=== PATIENT | male | born 1960 | race Caucasian/White ===

== ENCOUNTER 2016-12-08 18:42 | Emergency (ER) | payer OTHER ==
[~2016-12-08] VITALS: Ht 188 cm; Wt 107.0 kg
[~2016-12-08 18:42] MED LIST: AMLO5TAB4 PO; CLON-379 PO; DICY10CA60 PO; HYDR-762 PO; Metoprolol Succinate PO; ONDA4TAB35 PO; SENN-53 PO
[2016-12-08 18:46] VITALS: Ht 188 cm; Wt 107.0 kg
[2016-12-08] MEDS ORDERED: TIMOLOL 0.5% 5 ML OPH LEFT EYE ONE (21:00)
[2016-12-08] MEDS ORDERED: TETRACAINE 0.5% 4 ML OPH LEFT EYE ONE (21:00)
[2016-12-08] MEDS ORDERED: ACETAZOLAMIDE 500 MG INJ IV ONE (21:00)
[2016-12-08] MEDS ORDERED: FLUORESCEIN STRIP LEFT EYE ONE (21:00)
--- NOTE | 2016-12-08 21:17 | ERD ---
ER Documentation Chief Complaint Chief Complaint left eye pain/swelling since this am upon waking up HPI 56-year-old male presenting with the chief complaints of left eye pain 12 hours. Describes the eye pain as ripping and sharp. Sudden onset. Patient describes decrease in vision without specific characteristics. Complains of photophobia., Denies headache, similar symptoms in past, difficulty breathing, fever, chills, nausea, vomiting, or discharge. Has not taken any medications to relieve the symptoms. No alleviating factors. Patient has no other complaints and describes no other associated manifestations. Nursing notes have been reviewed and are consistent with history given. ROS All systems reviewed and are negative except as per history of present illness. Medications Home Meds Active Scripts Sennosides* (Senna Lax*) 8.6 Mg Tablet, 1 TAB PO Q12H Y for CONSTIPATION, #20 TAB Prov:ANA HUTCHISON 06/02/15 Clonidine Hcl* (Clonidine Hcl*) 0.1 Mg Tab, 0.1 MG PO Q4H Y for sbp>160, #30 TAB Prov:ANA HUTCHISON 06/02/15 [Metoprolol Succinate] 25 MG TABSR No Conflict Check, 25 MG PO BID for 30 Days, TAB Prov:ANA HUTCHISON 06/02/15 Amlodipine Besylate* (Norvasc*) 5 Mg Tab, 5 MG PO BID for 30 Days, TAB Prov:ANA HUTCHISON 06/02/15 Ondansetron Hcl* (Zofran* ODT) 4 mg -ODT Tab.disper, 4 MG PO Q6 Y for NAUSEA AND /OR VOMITING, #30 TAB Prov:ANA HUTCHISON 06/02/15 Dicyclomine Hcl* (Bentyl*) 10 Mg Capsule, 10 MG PO QID Y for abdominal pain, # 30 CAP Prov:KIMANI PÉREZ MD 05/31/15 Hydrocodone Bit-Acetaminophen* ([place]*) 10-325 Mg Tablet, 1 TAB PO Q6 Y for PAIN , #12 TAB Prov:KIMANI PÉREZ MD 05/31/15 Allergies Allergies: Coded Allergies: No Known Drug Allergies (Verified Allergy, Unknown, 12/08/16) Uncoded Allergies: SEAFOOD (Allergy, Intermediate, ITCHING, 06/01/15) PMhx/Soc History of Surgery: Yes (2/1/16 KELOID REMOVED FROM RIGHT CHEST) Anesthesia Reaction: No Hx Neurological Disorder: No Hx Respiratory Disorders: No Hx Cardiac Disorders: No Hx Psychiatric Problems: No Hx Miscellaneous Medical Probl: No Hx Alcohol Use: Yes (RARELY) Hx Substance Use: No Hx Tobacco Use: No Physical Exam Vitals Vital Signs Date Time Temp Pulse Resp B/P Pulse Ox O2 Delivery O2 Flow Rate FiO2 12/09/16 00:05 98.1 71 18 157/78 98 Room Air 12/08/16 18:46 98.1 89 20 157/77 98 Physical Exam Const: Overweight -[place] 56-year-old male in moderate distress. Head: Atraumatic Eyes: Scleral and ciliary injection. Mild clear discharge from left eye. Extraocular movements intact bilaterally. No nystagmus. Poorly dilating left pupil. ENT: Normal External Ears, Nose and Mouth. Neck: Full range of motion..~ No meningismus. Resp: Clear to auscultation bilaterally Cardio: Regular rate and rhythm, no murmurs Abd: Soft, non tender, non distended. Normal bowel sounds Skin: No petechiae or rashes Back: No midline or flank tenderness Ext: No cyanosis, or edema Neur: Awake and alert Psych: Normal Mood and Affect Result Diagram: 12/08/16214412/08/162144 Results 24 hrs Laboratory Tests Test 12/08/16 21:45 White Blood Count 4.910^3/ul Red Blood Count 4.3410^6/ul Hemoglobin 12.3g/dl Hematocrit 36.1% Mean Corpuscular Volume 83.2fl Mean Corpuscular Hemoglobin 28.3pg Mean Corpuscular Hemoglobin Concent 34.1g/dl Red Cell Distribution Width 11.9% Platelet Count 38273^3/UL Mean Platelet Volume 9.9fl Neutrophils % 67.9% Lymphocytes % 23.5% Monocytes % 6.8% Eosinophils % 1.0% Basophils % 0.4% Nucleated Red Blood Cells % 0.0/100WBC Neutrophils # 3.310^3/ul Lymphocytes # 1.110^3/ul Monocytes # 0.310^3/ul Eosinophils # 0.110^3/ul Basophils # 0.010^3/ul Nucleated Red Blood Cells # 0.010^3/ul Prothrombin Time 13.7Sec Prothrombin Time Ratio 1.1 INR International Normalized Ratio 1.05 Activated Partial Thromboplast Time 25.3Sec Sodium Level 140mmol/L Potassium Level 3.3mmol/L Chloride Level 104mmol/L Carbon Dioxide Level 24mmol/L Anion Gap 15 Blood Urea Nitrogen 6mg/dl Creatinine 1.05mg/dl Glucose Level 90mg/dl Calcium Level 9.0mg/dl Total Bilirubin 0.9mg/dl Direct Bilirubin 0.00mg/dl Indirect Bilirubin 0.9mg/dl Aspartate Amino Transf (AST/SGOT) 44IU/L Alanine Aminotransferase (ALT/SGPT) 44IU/L Alkaline Phosphatase 71IU/L Total Protein 7.6g/dl Albumin 4.1g/dl Globulin 3.50g/dl Albumin/Globulin Ratio 1.17 Current Medications Medications (Trade) Dose Ordered Sig/Lainey Route PRN Reason Start Time Stop Time Status Last Admin Dose Admin Tetracaine HCl (Tetracaine 0.5% Steri-Unit Agata) 1 drop ONCE ONCE LEFT EYE 12/08/16 21:00 12/08/16 21:01 DC 12/08/16 21:32 Fluorescein Sodium (Cewjn-L-Qfhcp) 1 strip ONCE ONCE LEFT EYE 12/08/16 21:00 12/08/16 21:01 DC 12/08/16 21:32 Acetazolamide (Diamox) 250 mg ONCE ONCE IV 12/08/16 21:00 12/08/16 21:01 DC 12/08/16 21:08 Timolol Maleate (Timoptic 0.5%) 1 drop ONCE ONCE LEFT EYE 12/08/16 21:00 12/08/16 21:01 DC 12/08/16 21:33 Brimonidine Tartrate (Alphagan P 0.15%) 1 drop ONCE ONCE LEFT EYE 12/08/16 22:00 12/08/16 22:01 DC 12/08/16 22:18 Prednisolone Acetate (Pred-Forte 1%) 1 drop ONCE ONCE LEFT EYE 12/08/16 22:00 12/08/16 22:01 DC 12/08/16 22:12 Ciprofloxacin HCl (Ciloxan 0.3% Oph) 2 drop ONCE ONCE BOTH EYES 12/08/16 23:30 12/08/16 23:31 DC 12/08/16 23:30 Morphine Sulfate (morphine) 5 mg ONCE ONCE IV 12/08/16 23:30 12/08/16 23:31 DC 12/08/16 23:42 Acetazolamide (Diamox) 250 mg ONCE ONCE IV 12/09/16 01:00 12/09/16 01:01 DC 12/09/16 01:02 Procedures/MDM Otherwise healthy 56-year-old male presenting with 12 hours of acute, red, painful eye with photophobia and decreased vision as described in history and physical examination. Eye was numbed with proparacaine in each eye. The unaffected right eye measured 32, the affected left eye measured 58 on 2 separate readings. I presented the case immediately to my attending Dr. Humphreys who has suggested IV acetazolamide 250, topical timolol, then topical prednisolone, and topical brimonidine 1.5%. Fluorescein stain with Reynolds lamp revealed no abnormalities. Clear discharge noted during Reynolds lamp. Reevaluation with Ariel- Pen revealed decrease pressure to 37 at the 1 hour martir. Reevaluation with Ariel -Pen at 1-1/2 hours measured at 31 on the affected eye. CT scan is not available at the hospital at this time.Case was presented again to my attending Dr. Humphreys who has recommended flushing the eye with Roland lens, Ciprodex gtt antibiotics. I have spoke with the patient who will stay for transfer to another facility with ophthalmology. I have explained the options and the time sensitivity of the situation. Unable to find a transfer location at this time. Intraocular pressure at 2 and half hours revealed 32 in the affected eye and 21 in the unaffected eye. Reevaluation of the eyes revealed no foreign body. Possible steamy cornea. Morphine 4 mg and Toradol 30 mg IV given. Was suggested by my new attending Dr. Rubio who suggested CT of orbits with contrast. Results read by the radiologist given the following impression: 1. Normal noncontrast CT appearance of the intraorbital structures. If there is continued concern for orbital pathology, further evaluation with contrast enhanced MRI may be useful. 2. No fracture. [facility] has accepted the transfer for further management. My attending has been notified and agrees with the assessment and plan. Departure Diagnosis: Primary Impression: Acute angle-closure glaucoma of left eye Condition: Stable Additional Instructions: Patient will be transferred. DILLON OROZCO PA-C Dec 08, 2016 21:17
[2016-12-08] MEDS ORDERED: PREDNISOLONE ACET 1% 5 ML OPH LEFT EYE ONE (22:00)
[2016-12-08] MEDS ORDERED: BRIMONIDINE 0.15% 5 ML OPH LEFT EYE ONE (22:00)
[2016-12-08 22:02] LABS: BASOPHILS % 0.4 % (0.0-2.0); EOSINOPHILS # 0.1 10^3/ul (0.0-0.5); HEMATOCRIT 36.1 % (42.0-52.0); HEMOGLOBIN 12.3 g/dl (14.0-18.0); LYMPHOCYTES # 1.1 10^3/ul (0.8-2.9); LYMPHOCYTES % 23.5 % (15.0-51.0); MEAN CORPUSCULAR HEMOGLOBIN 28.3 pg (29.0-33.0); MEAN CORPUSCULAR HGB CONC 34.1 g/dl (32.0-37.0); MEAN CORPUSCULAR VOLUME 83.2 fl (82.0-101.0); MEAN PLATELET VOLUME 9.9 fl (7.4-10.4); MONOCYTE # 0.3 10^3/ul (0.3-0.9); MONOCYTES % 6.8 % (0.0-11.0); NEUTROPHIL # 3.3 10^3/ul (1.6-7.5); NEUTROPHILS % 67.9 % (39.0-77.0); PLATELET COUNT 189 10^3/UL (140-415); RED BLOOD COUNT 4.34 10^6/ul (4.70-6.10); RED CELL DISTRIBUTION WIDTH 11.9 % (11.5-14.5); WHITE BLOOD COUNT 4.9 10^3/ul (4.8-10.8)
[2016-12-08 22:21] LABS: INR 1.05; PROTIME 13.7 Sec (12.2-14.2); PT RATIO 1.1
[2016-12-08 22:22] LABS: PARTIAL THROMBOPLASTIN TIME 25.3 Sec (25.0-35.0)
[2016-12-08 22:27] LABS: ALBUMIN 4.1 g/dl (3.3-4.9); ALBUMIN/GLOBULIN RATIO 1.17; BILIRUBIN,INDIRECT 0.9 mg/dl (0-1.1); BILIRUBIN,TOTAL 0.9 mg/dl (0.2-1.3); CREATININE 1.05 mg/dl (0.61-1.24); POTASSIUM 3.3 mmol/L (3.5-5.1); TOTAL PROTEIN 7.6 g/dl (6.1-8.1)
[2016-12-08] MEDS ORDERED: morphine 10 MG INJ IV ONE (23:30)
[2016-12-08] MEDS ORDERED: CIPROFLOXACIN 0.3% 2.5 ML OPH BOTH EYES ONE (23:30)
[2016-12-09] MEDS ORDERED: ACETAZOLAMIDE 500 MG INJ IV ONE (01:00)
--- NOTE | 2016-12-09 01:42 | RADRPT ---
PROCEDURE: CT scan orbits CLINICAL INDICATION: Left eye pain. TECHNIQUE: A CT of the orbits was performed without intravenous contrast. Coronal and sagittal ref ormats were generated. CTDIvol: 29.37 mGy. DLP: 461.65 mGy-cm. One or more of the following dose reduction techniques were used: Automated exposure control. Adjustment of the mA and/or kV according to patient size. Use of iterative reconstruction technique. COMPARISON: None available FINDINGS: The visualized soft tissues of the face are unremarkable. There is no fracture. The intraorbital s tructures are normal. The visualized paranasal sinuses and nasal cavity are clear. The visualized intracranial soft tissues are within normal limits. IMPRESSION: 1. Normal noncontrast CT appearance of the intraorbital structures. If there is continued concern f or orbital pathology, further evaluation with contrast enhanced MRI may be useful. 2. No fracture. RPTAT: HTAR .José Miguel Ernst MD, MD Date Time Electronically viewed and signed by .José Miguel Ernst MD, on 12/09/2016 01:42 .R/
[2016-12-09] MEDS ORDERED: morphine 10 MG INJ IV ONE (03:30)
[2016-12-09 03:43] VITALS: BP 147/92; PULSE 71; RESP 18; TEMP 98.2
== END 2016-12-09 03:47 | disposition short-term general hospital (02) ==
LOC: FTE 18:42
DX: H40.212 Acute angle-closure glaucoma, left eye (principal); R07.9 Chest pain, unspecified
CPT/HCPCS: 70480; 80053; 85025; 85610; 85730; 96374; 96375; 96376; 99285; J1120; J2270